=== PATIENT | female | born 1975 | race Caucasian/White ===

== ENCOUNTER 2022-11-09 01:29 | Emergency (ER) | payer SELFPAY ==
[~2022-11-09] VITALS: Ht 170.2 cm; Wt 76.0 kg
[2022-11-09] MEDS ORDERED: METHYLPREDNISOLONE SOD SUCC 125 MG/2 ML VIAL IV ONE (03:30)
[2022-11-09] MEDS ORDERED: SODIUM CHLORIDE 0.9% 1,000 ML IV ONE (03:30)
[2022-11-09] MEDS ORDERED: MAGNESIUM 2 G PREMIX 50 ML IV ONE (03:30)
[2022-11-09] MEDS ORDERED: IPRATROPIUM/ALBUTEROL 0.5-3(2.5)MG/3ML NEB HHN ONE ×2 (03:30→06:15)
[2022-11-09] MEDS ORDERED: IPRATROPIUM/ALBUTEROL 0.5-3(2.5)MG/3ML NEB ONE (07:59)
[2022-11-09] MEDS ORDERED: ALBU6.7H3 INH (09:32)
[2022-11-09] MEDS ORDERED: P50 MT (09:32)
[2022-11-09 09:50] VITALS: BP 108/55
== END 2022-11-09 09:55 | disposition home or self-care (01) ==
LOC: ER 01:29
DX: J45.901 Unspecified asthma with (acute) exacerbation (principal); J06.9 Acute upper respiratory infection, unspecified; R09.81 Nasal congestion; Z98.890 Other specified postprocedural states
CPT/HCPCS: 71045; 94640; 96374; 99285; J2930; J3475; J7030; Z7610

== ENCOUNTER 2023-12-05 06:24 | Emergency (ER) | payer OTHER, MEDICAID ==
[~2023-12-05] VITALS: Ht 170.2 cm; Wt 83.0 kg
[~2023-12-05 06:24] MED LIST: ALBU6.7H3 INH; P50 MT
[2023-12-05 07:17] VITALS: TEMP 98.2
[2023-12-05] MEDS: PREDNISONE 20MG TABLET PO STA (07:36)
[2023-12-05 07:43] LABS: BASOPHILS % 0.7 % (0.0-2.0); EOSINOPHILS % 3.7 % (0.0-5.0); HEMATOCRIT. 43.3 % (36.0-48.0); HEMOGLOBIN. 14.5 g/dL (12.0-16.0); LYMPHOCYTES % 33.5 % (20.0-50.0); MEAN CORPUSCULAR HEMOGLOBIN 30.6 pg (28.0-32.0); MEAN CORPUSCULAR HGB CONC 33.5 g/dL (31.0-37.0); MEAN CORPUSCULAR VOLUME 91.5 fL (81.0-99.0); MONOCYTES % 8.6 % (2.0-8.0); NEUTROPHILS % 53.5 % (40.0-76.0); PLATELET 334 x1000/uL (130-400); RED BLOOD CELL COUNT 4.73 mill/uL (4.2-5.4); RED CELL DISTRIBUTION WIDTH 13.4 % (11.6-14.6); WHITE BLOOD COUNT 6.4 x1000/uL (4.5-11.0)
[2023-12-05 07:51] LABS: CHLORIDE 107 mEq/L (98-107); POTASSIUM 4.1 mEq/L (3.5-5.1); SODIUM 142 mEq/L (136-145)
[2023-12-05 07:52] LABS: CALCIUM 9.7 mg/dL (8.7-10.4); CARBON DIOXIDE 26 mEq/L (21-32)
[2023-12-05 07:57] LABS: CREATININE 0.8 mg/dL (0.6-1.0); GLUCOSE 99 mg/dL (70-105); UREA NITROGEN BLOOD 11 mg/dL (9-23)
[2023-12-05 07:59] LABS: ALANINE AMINOTRANSFERASE 18 IU/L (10-49); ALBUMIN 4.5 g/dL (3.2-4.8); ASPARTATE AMINOTRANSFERASE 23 IU/L (<34); BILIRUBIN TOTAL 0.3 mg/dL (0.1-1.0); PROTEIN TOTAL 7.1 g/dL (6.0-8.3)
[2023-12-05] MEDS: IPRATROPIUM BROMIDE (0.02%) 0.5MG/2.5ML NEB HHN STA (08:02)
[2023-12-05] MEDS: ALBUTEROL (0.083%) 2.5MG/3ML NEB HHN SCH (08:02)
[2023-12-05 08:06] VITALS: PULSE 78; RESP 20; O2SAT 96
[2023-12-05 08:21] LABS: HCG SCREEN NEGATIVE
[2023-12-05 08:28] VITALS: PULSE 68; RESP 20; O2SAT 100
[2023-12-05 08:37] LABS: TROPONIN I HIGH SENSITIVITY < 4 ng/L (3.0-34)
[2023-12-05 08:54] VITALS: PULSE 70; RESP 20; O2SAT 100
[2023-12-05 11:18] VITALS: BP 119/68; PULSE 71; RESP 17
[2023-12-05] MEDS ORDERED: ALBU6.7H15 INH (11:19)
[2023-12-05] MEDS ORDERED: P20 MT (11:19)
== END 2023-12-05 11:35 | disposition home or self-care (01) ==
LOC: ER 06:24
DX: J45.901 Unspecified asthma with (acute) exacerbation (principal); Z98.890 Other specified postprocedural states
CPT/HCPCS: 80053; 84703; 83880; 83690; 85025; 84484; 36415; 71045; 94640; 93005; 99285; J7512; Z7610 ×3

== ENCOUNTER 2024-03-21 19:09 | Emergency (ER) | payer OTHER, MEDICAID ==
[~2024-03-21] VITALS: Ht 170.2 cm; Wt 78.0 kg
[~2024-03-21 19:09] MED LIST changes: +ALBU6.7H15 INH; +P20 MT
[2024-03-21] MEDS: PREDNISONE 20MG TABLET PO ONE (20:09)
[2024-03-21 20:11] VITALS: PULSE 86; RESP 20; O2SAT 94
[2024-03-21] MEDS: IPRATROPIUM/ALBUTEROL 0.5-3(2.5)MG/3ML NEB HHN ONE ×2 (20:11→23:15)
[2024-03-21 20:58] LABS: BASOPHILS % 0.3 % (0.0-2.0); EOSINOPHILS % 5.1 % (0.0-5.0); HEMATOCRIT. 41.3 % (36.0-48.0); LYMPHOCYTES % 26.5 % (20.0-50.0); MEAN CORPUSCULAR HEMOGLOBIN 31.1 pg (28.0-32.0); MEAN CORPUSCULAR HGB CONC 33.9 g/dL (31.0-37.0); MEAN CORPUSCULAR VOLUME 91.7 fL (81.0-99.0); MEAN PLATELET VOLUME 7.8 fl (7.4-10.4); MONOCYTES % 6.8 % (2.0-8.0); NEUTROPHILS % 61.3 % (40.0-76.0); PLATELET 309 x1000/uL (130-400); RED BLOOD CELL COUNT 4.51 mill/uL (4.2-5.4); WHITE BLOOD COUNT 10.3 x1000/uL (4.5-11.0)
[2024-03-21 21:03] LABS: CHLORIDE 109 mEq/L (98-107); POTASSIUM 4.4 mEq/L (3.5-5.1); SODIUM 142 mEq/L (136-145)
[2024-03-21 21:04] LABS: CARBON DIOXIDE 27 mEq/L (21-32)
[2024-03-21 21:09] LABS: GLUCOSE 116 mg/dL (70-105); UREA NITROGEN BLOOD 15 mg/dL (9-23)
[2024-03-21 21:10] LABS: TROPONIN I HIGH SENSITIVITY < 4 ng/L (3.0-34)
[2024-03-21] MEDS: ACETAMINOPHEN 325MG TABLET PO ONE (21:15)
[2024-03-21] MEDS ORDERED: P20 MT (21:23)
[2024-03-21] MEDS ORDERED: ALBU18HF2 IH (21:23)
[2024-03-21 23:15] VITALS: PULSE 79; RESP 18; O2SAT 96
[2024-03-22] MEDS: IPRATROPIUM/ALBUTEROL 0.5-3(2.5)MG/3ML NEB HHN ONE (00:22)
[2024-03-22 00:24] VITALS: PULSE 73; RESP 18; O2SAT 98
[2024-03-22 01:15] VITALS: BP 125/76; PULSE 80; RESP 20; TEMP 36.61404; O2SAT 98
== END 2024-03-22 01:15 | disposition home or self-care (01) ==
LOC: ER 19:09
DX: J45.901 Unspecified asthma with (acute) exacerbation (principal); R06.02 Shortness of breath; Z98.890 Other specified postprocedural states; Z79.899 Other long term (current) drug therapy
CPT/HCPCS: 80048; 85025; 84484; 36415; 71045; 93005; 99285; 94640; J7512; Z7610 ×4

== ENCOUNTER 2024-06-16 16:04 | Emergency (ER) | payer MEDICAID, OTHER ==
[~2024-06-16] VITALS: Ht 170.2 cm; Wt 85.0 kg
[~2024-06-16 16:04] MED LIST changes: +ALBU18HF2 IH
[2024-06-16] MEDS: DEXAMETHASONE 10 MG/ML VIAL IM ONE (17:18)
[2024-06-16] MEDS: ALBUTEROL (0.083%) 2.5MG/3ML NEB HHN ONE (18:08)
[2024-06-16 18:09] VITALS: PULSE 76; RESP 16; O2SAT 98
[2024-06-16] MEDS ORDERED: ALBU2.5V13 NEB (18:49)
[2024-06-16] MEDS ORDERED: ALBU90AE INH (18:49)
[2024-06-16] MEDS ORDERED: P50 MT (18:49)
[2024-06-16 18:53] VITALS: BP 111/62; PULSE 87; RESP 18; TEMP 36.94740; O2SAT 95
== END 2024-06-16 19:00 | disposition home or self-care (01) ==
LOC: ER 16:04
DX: J45.901 Unspecified asthma with (acute) exacerbation (principal); Z98.890 Other specified postprocedural states
CPT/HCPCS: 81025; 71046; 94640; 94664; 94070; 98960; 96372; 99283; J1100; Z7610 ×2